=== PATIENT | male | born 1955 | race Caucasian/White ===

== ENCOUNTER → 2017-03-19 | Outpatient (RCR) | payer OTHER | END | disposition home or self-care (01) | LOC: WCC 14:15 | DX: T86.821 Skin graft (allograft) (autograft) failure (principal); Z89.511 Acquired absence of right leg below knee; E11.9 Type 2 diabetes mellitus without complications; I10 Essential (primary) hypertension; E78.00 Pure hypercholesterolemia, unspecified; Z87.442 Personal history of urinary calculi; E11.622 Type 2 diabetes mellitus with other skin ulcer ==

== ENCOUNTER 2017-04-28 08:09 | Outpatient (RCR) | payer OTHER | END 2017-05-17 | disposition home or self-care (01) | LOC: WCC 08:09 | DX: T86.821 Skin graft (allograft) (autograft) failure (principal); E11.622 Type 2 diabetes mellitus with other skin ulcer; L97.812 Non-pressure chronic ulcer of other part of right lower leg with fat layer exposed; Z89.519 Acquired absence of unspecified leg below knee; I10 Essential (primary) hypertension; E78.00 Pure hypercholesterolemia, unspecified; Z87.442 Personal history of urinary calculi | CPT/HCPCS: 11042; 15002; 15271; G0277; Q4133 ==

== ENCOUNTER 2017-04-28 08:47 | Outpatient (CLI) | payer OTHER ==
--- NOTE | 2017-04-28 09:42 | Diagnostic Imaging Report ---
Indication: Cough, History of right pneumothorax and right lung atelectasis Technique: 2 views of the chest Comparison: None Findings: Lungs and pleural spaces are clear. The heart size is normal. The bones are unremarkable. No significant interim change. Impression: Negative
== END 2017-04-28 10:47 | disposition home or self-care (01) ==
LOC: RAD 08:47
DX: R05 Cough (principal)
CPT/HCPCS: 71046

== ENCOUNTER 2017-05-19 08:07 | Outpatient (RCR) | payer OTHER | END 2017-06-16 | disposition home or self-care (01) | LOC: WCC 08:07 | DX: L97.812 Non-pressure chronic ulcer of other part of right lower leg with fat layer exposed (principal); T86.821 Skin graft (allograft) (autograft) failure; E11.622 Type 2 diabetes mellitus with other skin ulcer; I10 Essential (primary) hypertension; E78.00 Pure hypercholesterolemia, unspecified; Z89.519 Acquired absence of unspecified leg below knee | CPT/HCPCS: 11042; 15271; 82962; G0277; G0463; Q4133 ==

== ENCOUNTER 2017-07-07 10:02 | Outpatient (RCR) | payer OTHER | END 2017-07-17 | disposition home or self-care (01) | LOC: WCC 10:02 | DX: T86.821 Skin graft (allograft) (autograft) failure (principal); L97.812 Non-pressure chronic ulcer of other part of right lower leg with fat layer exposed; E11.622 Type 2 diabetes mellitus with other skin ulcer; Z89.519 Acquired absence of unspecified leg below knee; E78.00 Pure hypercholesterolemia, unspecified; I10 Essential (primary) hypertension | CPT/HCPCS: 15271; 82962; Q4133 ==

== ENCOUNTER 2017-07-21 09:59 | Outpatient (RCR) | payer OTHER | END 2017-08-16 | disposition home or self-care (01) | LOC: WCC 09:59 | DX: L97.812 Non-pressure chronic ulcer of other part of right lower leg with fat layer exposed (principal); T86.821 Skin graft (allograft) (autograft) failure; E11.622 Type 2 diabetes mellitus with other skin ulcer; E11.9 Type 2 diabetes mellitus without complications; I10 Essential (primary) hypertension; E78.00 Pure hypercholesterolemia, unspecified; Z87.442 Personal history of urinary calculi | CPT/HCPCS: 11042; 15271; 82962; G0463; Q4133 ==

== ENCOUNTER 2017-09-01 09:00 | Outpatient (RCR) | payer OTHER | END 2017-09-16 | disposition still patient (30) | LOC: WCC 09:00 | DX: L97.812 Non-pressure chronic ulcer of other part of right lower leg with fat layer exposed (principal); T86.821 Skin graft (allograft) (autograft) failure; E11.622 Type 2 diabetes mellitus with other skin ulcer; I10 Essential (primary) hypertension; E78.00 Pure hypercholesterolemia, unspecified; Z87.442 Personal history of urinary calculi | CPT/HCPCS: 15271; 82962; G0463; Q4133 ==

== ENCOUNTER 2017-09-29 08:36 | Outpatient (RCR) | payer OTHER | END 2017-10-17 | disposition home or self-care (01) | LOC: WCC 08:36 | DX: L97.812 Non-pressure chronic ulcer of other part of right lower leg with fat layer exposed (principal); T86.821 Skin graft (allograft) (autograft) failure; E11.622 Type 2 diabetes mellitus with other skin ulcer; E11.9 Type 2 diabetes mellitus without complications; I10 Essential (primary) hypertension; E78.00 Pure hypercholesterolemia, unspecified; Z89.519 Acquired absence of unspecified leg below knee ==